=== PATIENT | female | born 2000 | race Caucasian/White ===

== ENCOUNTER 2023-04-29 15:30 | Emergency (ER) | payer OTHER, BC ==
[2023-04-29] MEDS ORDERED: Ketorolac Tromethamine 30 MG/ML VIAL ONE (16:43)
[2023-04-29] MEDS ORDERED: Orphenadrine Citrate 60 MG/2 ML VIAL ONE (16:43)
== END 2023-04-29 17:41 | disposition home or self-care (01) ==
LOC: CSHERS 15:30
DX: S29.012A Strain of muscle and tendon of back wall of thorax, initial encounter (principal); S39.012A Strain of muscle, fascia and tendon of lower back, initial encounter; X50.1XXA Overexertion from prolonged static or awkward postures, initial encounter; Y92.69 Other specified industrial and construction area as the place of occurrence of the external cause
CPT/HCPCS: 96372; 99283; J1885; J2360